=== PATIENT | male | born 1975 | race Caucasian/White ===

== ENCOUNTER 2016-06-24 07:59 | Day surgery (SDC) | payer OTHER ==
[~2016-06-24] VITALS: Ht 167.6 cm; Wt 81.6 kg
[2016-06-24] MEDS ORDERED: LIDOCAINE 2% 100 MG/5 ML UJET TP ONE (09:21)
[2016-06-24] MEDS ORDERED: fentaNYL 0.05 MG/ML VIAL ONE (09:21)
== END 2016-06-24 10:20 | disposition home or self-care (01) ==
LOC: MDS 07:59 → MMU 08:10 → MDS 10:20
PROVIDERS: ATTEND Internal Medicine Gastroenterology
DX: D12.3 Benign neoplasm of transverse colon (principal); K64.8 Other hemorrhoids; D12.2 Benign neoplasm of ascending colon; Z98.890 Other specified postprocedural states

== ENCOUNTER 2021-06-18 08:48 | Day surgery (SDC) | payer OTHER, SELFPAY ==
[~2021-06-18] VITALS: Ht 167.6 cm; Wt 83.0 kg
[2021-06-18] MEDS ORDERED: LIDOCAINE 2% 100 MG/5 ML UJET TP ONE (12:18)
[2021-06-18] MEDS ORDERED: fentaNYL citrate 0.05 MG/ML VIAL ONE (12:18)
[2021-06-18] MEDS ORDERED: fentaNYL citrate 0.05 MG/ML VIAL IVP ONE (15:50)
== END 2021-06-18 13:30 | disposition home or self-care (01) ==
LOC: MOR 08:48 → MMU 08:49 → MOR 13:30
PROVIDERS: ATTEND Internal Medicine Gastroenterology
DX: K62.5 Hemorrhage of anus and rectum (principal); D12.3 Benign neoplasm of transverse colon; D12.5 Benign neoplasm of sigmoid colon; K64.8 Other hemorrhoids; K57.30 Diverticulosis of large intestine without perforation or abscess without bleeding; Z86.010 Personal history of colon polyps; F17.200 Nicotine dependence, unspecified, uncomplicated; Z79.899 Other long term (current) drug therapy; Z20.822 Contact with and (suspected) exposure to COVID-19
CPT/HCPCS: 45385; 45398; 87426; J3010